=== PATIENT | female | born 1990 | race Two or more races ===

== ENCOUNTER 2017-06-20 19:56 | Emergency (ER) | payer MEDICAID ==
[2017-06-20] MEDS ORDERED: Sodium Chloride 0.9% 1,000 ML IV ONE (20:54)
[2017-06-20] MEDS ORDERED: Metoclopramide 10 MG/2 ML SDV IVPUSH ONE (20:54)
[2017-06-20] MEDS ORDERED: diphenhydrAMINE 50 MG/ML SDV IVPUSH ONE (20:55)
[2017-06-20] MEDS ORDERED: Ketorolac 30 MG/ML SDV IVPUSH ONE (20:56)
[2017-06-20] MEDS ORDERED: Sodium Chloride 0.9% 10 ML Syringe FLUSH PRN (21:04)
[2017-06-20 21:52] VITALS: BP 119/82
--- NOTE | 2017-06-23 14:16 | ER ---
DATE SEEN: 06/20/2017 HISTORY OF PRESENT ILLNESS: This 27-year-old woman presents with history of headaches, onset at noon, 9/10 intensity, now it is 10/10 intensity with associated photophobia and phonophobia. She did not have diaphoresis, lightheadedness, palpitations, paresis, weakness, numbness, or sensory changes. No history of diplopia. No teichopsia or fortification syndrome. She has extensive heartburn. She has bottle of pills for her headache, but she cannot find the bottle. ALLERGIES: None. SOCIAL HISTORY: She is now a single mother. REVIEW OF SYSTEMS: Negative. No history of hypertension, head trauma, fevers, meningitis, or other serious illnesses, hospitalizations, or surgeries. PHYSICAL EXAMINATION: VITAL SIGNS: Blood pressure 108/64, heart rate 88, respirations 18, oxygen saturation 95%, and temperature 36.8 degrees centigrade. HEENT: PERRLA intact. The patient has moderate discomfort. Eyegrounds normal appearance. Pharynx without abnormality. No erythema. No cervical adenopathy. NECK: Supple. Mild neck stiffness in the paraspinal muscles of the cervical spine. No spinous process or interspinous process tenderness. LUNGS: Clear to auscultation without rales, rhonchi, or wheezes. HEART: S1, S2. No irregularity of rhythm. ABDOMEN: Soft. No guarding. No abdominal discomfort. EXTREMITIES: Without abnormality. Deep tendon reflexes in upper and lower extremities symmetrical 1+ normoactive. No past pointing. No pronator drift. No dysmetria. Hand maintenance person muscle testing upper and lower extremities normal 3+/4+. Gait appropriate. Romberg negative. Cranial nerves 2 through 12 intact. ASSESSMENT: Migraine. PLAN: The patient is treated with Reglan 10 mg IV, Toradol 10 mg IV, Benadryl 50 mg IV for headache, and 1000 mL of normal saline. The patient's headache relented out of 1/2. The patient was seen at 2038 hours. /[id number] GRACE/MAXINE MCKOYD
== END 2017-06-20 21:58 | disposition home or self-care (01) ==
LOC: FB.ED 19:56
DX: G43.909 Migraine, unspecified, not intractable, without status migrainosus (principal)
CPT/HCPCS: 96374; 96375; 99283; J1200; J1885; J2765; J7040; J7050

== ENCOUNTER 2017-09-25 21:06 | Emergency (ER) | payer MEDICAID ==
[2017-09-25 22:01] VITALS: BP 110/66
--- NOTE | 2017-09-25 22:52 | ER ---
DATE SEEN: 09/25/2017 TIME SEEN: 2100 hours. CHIEF COMPLAINT: Pain right index finger. HISTORY OF PRESENT ILLNESS: This is a 27-year-old female, jammed the right index finger. Complains of pain and swelling, worse with movement. REVIEW OF SYSTEMS: All other systems unremarkable. ALLERGIES: Meloxicam. PHYSICAL EXAMINATION: Afebrile. Blood pressure is 116/81. Right index revealed some swelling around the MCP joint. Normal range of motion. The proximal phalanx was also tender to palpation and slightly swollen. DIAGNOSTIC STUDIES: X-ray was negative to my interpretation. IMPRESSION: Sprain, right index finger. PLAN: Ice, elevation, and ibuprofen. Neptali herrera /[id number] CRISTINA/MAXINE
--- NOTE | 2017-09-27 12:04 | CR ---
INDICATION: Jammed index finger. Pain proximal. RIGHT SECOND DIGIT: Three views of the right index finger revealed no evidence of a fracture, dislocation, or other significant bone or joint abnormality. There is noted soft tissue swelling about the proximal phalangeal area of the index finger. MTDD
== END 2017-09-25 22:00 | disposition home or self-care (01) ==
LOC: FB.ED 21:06
DX: S63.650A Sprain of metacarpophalangeal joint of right index finger, initial encounter (principal); X58.XXXA Exposure to other specified factors, initial encounter
CPT/HCPCS: 73140-F6; 99283